=== PATIENT | female | born 1995 | race Caucasian/White ===

== ENCOUNTER 2018-07-12 07:36 | Emergency (ER) | payer OTHER ==
--- NOTE | 2018-07-12 09:13 | ER Document Report ---
HPI - HPI Time Seen by Provider: 07/12/18 09:07 Pain Level: 4 Context: Patient is a 23-year-old female who presents emergency department with a chief complaint of a swollen throat, dizziness, fever, and not being able to eat since Monday. She states that she has had chills on and off. She has been taking Tylenol and ibuprofen but she can, but has had little relief. She denies any runny nose or cough. - ROS Systems Reviewed and Negative: Yes All other systems reviewed and negative - CONSTITUTIONAL Constitutional: REPORTS: Fever, Chills - EENT EENT: REPORTS: Sore Throat. DENIES: Ear Pain, Nasal Drainage-Clear, Nasal Drainage-Purulent, Congestion, Eye problems - NEURO Neurology: DENIES: Headache, Weakness - CARDIOVASCULAR Cardiovascular: DENIES: Chest pain - RESPIRATORY Respiratory: DENIES: Trouble Breathing, Coughing - GASTROINTESTINAL Gastrointestinal: DENIES: Abdominal Pain, Nausea, Patient vomiting - REPRODUCTIVE LMP: 07/12/18 Reproductive: DENIES: : - MUSCULOSKELETAL Musculoskeletal: DENIES: Extremity pain - DERM Skin Color: Normal Skin Problems: None Past Medical History - Social History Smoking Status: Unknown if Ever Smoked Family History: Reviewed & Not Pertinent Vertical Provider Document - CONSTITUTIONAL Agree With Documented VS: Yes Exam Limitations: No Limitations General Appearance: No Apparent Distress - INFECTION CONTROL TRAVEL OUTSIDE OF THE [place] IN LAST 30 DAYS: No - HEENT HEENT: Atraumatic, Normocephalic, PERRLA, Pharyngeal Exudate, Pharyngeal Tenderness, Pharyngeal Erythema. negative: Conjuctival Injection, Tympanic Membrane Red, Tympanic Membrane Bulging - NECK Neck: Normal Inspection, Supple, Thyroid Normal, Lymphadenopathy-Left, Lymphadenopathy-Right - RESPIRATORY Respiratory: Breath Sounds Normal, No Respiratory Distress - CARDIOVASCULAR Cardiovascular: Regular Rate, Regular Rhythm Pulses: Normal: Radial - MUSCULOSKELETAL/EXTREMETIES Musculoskeletal/Extremeties: FROM, Non-Tender, Tender - NEURO Level of Consciousness: Awake, Alert, Appropriate Motor/Sensory: No Motor Deficit, No Sensory Deficit - DERM Integumentary: Warm, Dry Course - Re-evaluation Re-evalutation: 07/12/18 09:55 Patient has tonsillar exudate, lymphadenopathy on both sides, and pharyngeal erythema. She will receive Decadron and penicillin here in the emergency department, as I suspect patient does have strep pharyngitis. She does have a fever of 100.6 here in the emergency department. She was given Tylenol. Uvula is midline. I do not suspect the patient has a peritonsillar abscess, Niles's angina, or any life-threatening etiology at this time. Her airway is patent. She is to follow-up with her primary care provider in regards to this visit. Verbal discharge instructions were given to the patient. They verbalized understanding. They are stable for discharge. - Vital Signs Vital signs: Temp Pulse Resp BP Pulse Ox 100.6 F H 105 H 16 119/76 97 07/12/18 07:39 07/12/18 07:39 07/12/18 07:39 07/12/18 07:39 07/12/18 07:39 Discharge - Discharge Clinical Impression: Pharyngitis Qualifiers: Pharyngitis/tonsillitis etiology: unspecified etiology Qualified Code(s): J02.9 - Acute pharyngitis, unspecified Condition: Stable Disposition: HOME, SELF-CARE Instructions: Penicillin V K (OM), Sore Throat (OM) Additional Instructions: You were seen today in the emergency department for sore throat. You were treated here in the emergency department for strep throat. Please follow-up with your primary care provider within the next few days. If you have worsening symptoms, or have any symptoms that are worrisome to you, please return to the emergency department.
[2018-07-12] MEDS ORDERED: ACETAMINOPHEN 325 MG TABLET PO ONE (09:14)
[2018-07-12] MEDS ORDERED: DEXAMETHASONE SOD PHOS INJ 10 MG/1 ML VIAL IM ONE (09:14)
[2018-07-12] MEDS ORDERED: PENICILLIN G BENZATHINE 1.2 MILLION UNIT/2 ML DISP.SYRIN IM ONE (09:54)
[2018-07-12 10:06] VITALS: BP 114/71
== END 2018-07-12 10:08 | disposition home or self-care (01) ==
LOC: ER 07:36
DX: J02.9 Acute pharyngitis, unspecified (principal); R22.1 Localized swelling, mass and lump, neck; R42 Dizziness and giddiness; R50.9 Fever, unspecified
CPT/HCPCS: 99283; 96372; 87070; 87880; 87077; J0561; J1100

== ENCOUNTER → 2018-10-26 | Day surgery (SDC) | payer OTHER ==
--- NOTE | 2018-10-26 12:29 | RADIOLOGY REPORT (SQ) ---
EXAM DESCRIPTION: ARTHRO SHOULDER INJECTION COMPLETED DATE/TIME: 10/26/2018 9:32 am REASON FOR STUDY: PAIN IN LEFT SHOULDER M25.512 PAIN IN LEFT SHOULDER COMPARISON: None. FLUOROSCOPY TIME: 2 seconds 1 digital C-arm images saved to PACS. LIMITATIONS: None. PROCEDURE: Procedure, risks, benefits and alternatives explained to patient who then gave written co nsent. The posterior left glenohumeral joint at the shoulder was marked and a time out was called for correct procedure verification. Posterior entry site marked using fluoroscopic guidance. Shoulder prepped and draped using sterile technique. Local anesthesia achieved using 1% lidocaine injection. Hypodermic needle introduced into the joint space under direct fluoroscopic visualization. Non-ionic contrast instilled to confirm intra-articular position. Dilute gadolinium solution then injected. N eedle removed and entry site covered with sterile bandage. No immediate complications noted. TECHNIQUE: Digital images acquired during fluoroscopy and stored on PACS. Patient immediately take n to the MR suite for additional imaging. INJECTION LOCATION: Posterior left glenohumeral joint CONTRAST TYPE AND AMOUNT: 1 mL of Omnipaque 300 injected to confirm intra-articular needle placement of by injection of 10 mL of dilute Dotarem/Saline mixture. IMPRESSION: SUCCESSFUL NEEDLE PLACEMENT AND INJECTION FOR LEFT SHOULDER MR ARTHROGRAM USING POSTERIO R APPROACH. COMMENT: Quality ID [id number]: Final reports for procedures using fluoroscopy that document radiation exp osure indices, or exposure time and number of fluorographic images (if radiation exposure indices are not available) TECHNICAL DOCUMENTATION: JOB ID: [id number] [employer] All Rights Reserved Reading location - IP/workstation name: [email or web address]
--- NOTE | 2018-10-26 13:05 | RADIOLOGY REPORT (SQ) ---
EXAM DESCRIPTION: MRI LT UPPER JOINT WITH COMPLETED DATE/TIME: 10/26/2018 10:12 am REASON FOR STUDY: PAIN IN LEFT SHOULDER M25.512 PAIN IN LEFT SHOULDER COMPARISON: None. TECHNIQUE: Left shoulder images acquired and stored on PACS. Oblique coronal, oblique sagittal, and axial imaging to include fat sensitive sequences as T1, water sensitive sequences as FST2/STIR, and c ontrast sensitive sequences as FST1. LIMITATIONS: None. FINDINGS: JOINT DISTENTION: Adequate distention for interpretation. BONE MARROW AND CORTEX: Normal. No significant osteophytes. No edema or defects. AC JOINT: Type II acromion. No significant AC joint arthropathy. GLENOHUMERAL JOINT: No subluxation or dislocation. No focal chondral defects or reactive bone changes . ROTATOR CUFF: Intact without significant tendinopathy, partial or full-thickness tears. No peritendin itis. LABRUM AND BICEPS LABRAL COMPLEX: Normal signal in the rotator interval without tear of the superior glenohumeral ligament. However, there is a 2 cm synovial cyst filling with contrast along the subcor acoid recess on axial image 7, coronal image 5, and sagittal image 6. Superior labrum, intra-articular long head biceps intact. Distal biceps in normal anatomic location i n bicipital groove. No paralabral cysts. INFERIOR LABRAL COMPLEX: Bony glenoid and labrum intact. IGHL intact without thickening or tear. No p aralabral cysts. ADJACENT SOFT TISSUES: No masses or nodes. OTHER: No other significant finding. IMPRESSION: 2 cm synovial cyst filling with contrast along the subcoracoid recess. No gross superior labral tear or rotator interval tear. TECHNICAL DOCUMENTATION: JOB ID: [id number]- All Rights Reserved Reading location - IP/workstation name: [email or web address]
== END ==
LOC: RAD 08:56
PROVIDERS: ATTEND Emergency Medicine
DX: M25.512 Pain in left shoulder (principal)
CPT/HCPCS: 23350; 77002

== ENCOUNTER 2019-11-25 19:31 | Emergency (ER) | payer OTHER ==
--- NOTE | 2019-11-25 20:36 | ER Document Report ---
ED Medical Screen (RME) - General Chief Complaint: Inability to Void Stated Complaint: ABDOMINAL PAIN,UNABLE TO URINATE Time Seen by Provider: 11/25/19 20:34 Primary Care Provider: SHIRA MEJIA MD [Primary Care Provider] - Follow up as needed Information source: Patient Notes: Patient presents complaining of lower pelvic pain and low back pain for the past 5 days. Patient denies any vaginal bleeding or discharge. Patient reports some decreased urine output. Patient denies any nausea or vomiting but does report diarrhea. Patient does state that she recently had a tampon in vaginally and forgot it was there and later in the same day had intercourse and then realized the tampon was there and removed and later that night. I have greeted and performed a rapid initial assessment of this patient. A comprehensive ED assessment and evaluation of the patient, analysis of test results and completion of the medical decision making process will be conducted by additional ED providers. TRAVEL OUTSIDE OF THE [place] IN LAST 30 DAYS: No - Related Data Allergies/Adverse Reactions: No Known Allergies Allergy (Verified 11/25/19 20:22) Past Medical History Renal/ Medical History: Denies: Hx Peritoneal Dialysis - Immunizations Hx Diphtheria, Pertussis, Tetanus Vaccination: No Physical Exam - Vital signs Vitals: Temp Pulse Resp BP Pulse Ox 98.3 F 86 16 128/89 H 99 11/25/19 19:42 11/25/19 19:42 11/25/19 19:42 11/25/19 19:42 11/25/19 19:42 - Abdominal Tenderness: Tender - Lower pelvic tenderness Course - Vital Signs Vital signs: Temp Pulse Resp BP Pulse Ox 98.3 F 86 16 128/89 H 99 11/25/19 19:42 11/25/19 19:42 11/25/19 19:42 11/25/19 19:42 11/25/19 19:42 Doctor's Discharge - Discharge Referrals: SHIRA MEJIA MD [Primary Care Provider] - Follow up as needed
--- NOTE | 2019-11-25 22:12 | RADIOLOGY REPORT (SQ) ---
EXAM DESCRIPTION: US PELVIS COMPLETED DATE/TME: 11/25/2019 20:34 CLINICAL HISTORY: 24 years, Female, pelvic pain, low back pain COMPARISON: None. TECHNIQUE: Endovaginal images of the pelvis were obtained. Grayscale imaging and Doppler imaging were performed. LIMITATIONS: None. FINDINGS: Uterus measures approximately 9.7 x 9.1 x 6.8 cm. There is a 6.8 x 6.5 x 6 cm heterogeneous, solid myometrial mass within the posterior uterine body and fundus, most consistent with a leiomyoma. There is some effacement of the posterior endometrial stripe. Endometrial stripe thickness is 8 mm. The ovaries are nonvisualized on this exam. There is no adnexal mass or free pelvic fluid identified. IMPRESSION: 6.8 cm myometrial mass most consistent with an intramural fibroid. Endometrial stripe thickness is 8 mm. Neither ovary is seen. copyright 2010 [employer]- All Rights Reserved
[2019-11-25 22:23] LABS: ABSOLUTE BASOPHILS # (AUTO) 0.1 10^3/uL (0.0-0.2); ABSOLUTE EOSINOPHILS # (AUTO) 0.3 10^3/uL (0.0-0.6); ABSOLUTE LYMPHOCYTES (AUTO) 2.6 10^3/uL (0.5-4.7); ABSOLUTE MONOCYTES (AUTO) 0.5 10^3/uL (0.1-1.4); ABSOLUTE NEUT (AUTO) 6.5 10^3/uL (1.7-8.2); BASOPHILS % (AUTO) 0.9 % (0-2); LYMPHOCYTES % (AUTO) 25.9 % (13-45); MEAN CORPUSCULAR HEMOGLOBIN 30.9 pg (27.0-33.4); MEAN CORPUSCULAR HGB CONC 34.1 g/dL (32.0-36.0); MEAN CORPUSCULAR VOLUME 91 fl (80-97); MONOCYTES % (AUTO) 5.3 % (3-13); PLATELET COUNT 264 10^3/uL (150-450); RED BLOOD COUNT 4.53 10^6/uL (3.72-5.28); RED CELL DISTRIBUTION WIDTH 12.7 % (11.5-14.0); SEGMENTED NEUTROPHILS % (AUTO) 64.9 % (42-78); TOTAL CELLS COUNTED % (AUTO) 100 %
[2019-11-25 22:36] LABS: ALBUMIN 4.7 g/dL (3.5-5.0); ALKALINE PHOSPHATASE 57 U/L (38-126); ANION GAP 11 (5-19); ASPARTATE AMINO TRANSFERASE 26 U/L (14-36); BILIRUBIN,DIRECT 0.3 mg/dL (0.0-0.4); BILIRUBIN,TOTAL 0.4 mg/dL (0.2-1.3); BLOOD UREA NITROGEN 13 mg/dL (7-20); CALCIUM 9.5 mg/dL (8.4-10.2); CARBON DIOXIDE 26 mmol/L (22-30); CHLORIDE 102 mmol/L (98-107); GLUCOSE 95 mg/dL (75-110); POTASSIUM 3.7 mmol/L (3.6-5.0); TOTAL PROTEIN 8.2 g/dL (6.3-8.2)
[2019-11-25 23:38] VITALS: BP 119/75
[2019-11-25 23:48] LABS: CHLAM PCR NOT DETECTED (NOT DETECT)
== END 2019-11-26 00:10 | disposition left against medical advice (07) ==
LOC: ER 19:31
DX: R10.2 Pelvic and perineal pain (principal); M54.5 Low back pain; R39.89 Other symptoms and signs involving the genitourinary system; Z53.20 Procedure and treatment not carried out because of patient's decision for unspecified reasons
CPT/HCPCS: 36415; 76856; 80053; 84703; 85025; 87491; 87591; 93976; 99281

== ENCOUNTER 2019-11-26 15:42 | Emergency (ER) | payer OTHER ==
[2019-11-26 16:29] VITALS: BP 130/81
--- NOTE | 2019-11-26 17:13 | ER Document Report ---
ED GI/ - General Chief Complaint: Abdominal Pain Stated Complaint: LOWER ABDOMINAL PAIN Primary Care Provider: SHIRA MEJIA MD [Primary Care Provider] - Follow up as needed KYLE VIDES MD [ACTIVE PROVISIONAL STAFF] - Follow up as needed Notes: CHIEF COMPLAINT: Pelvic pain and vaginal bleeding HPI: 24-year-old female presenting to the emergency department for evaluation of pelvic pain and vaginal bleeding that began yesterday. Patient has had some abnormal menses in the past but states that this seemed to be much worse and the pelvic pain was persistent over the last 48 hours. Does not have an [facility]. States that she felt like the bleeding may have lessened a little bit overnight but when she went to the bathroom earlier today she had large clots. ROS: See HPI - all other systems were reviewed and are otherwise negative Constitutional: no fever or recent illness Cardiovascular: no chest pain Resp: no SOB, no cough GI: no vomiting, no diarrhea : no dysuria, no vaginal discharge, positive pelvic pain, positive vaginal bleeding Integumentary: no rash Allergy: no hives MEDICATIONS: I agree with the patient medications as charted by the RN. ALLERGIES: I agree with the allergies as charted by the RN. PAST MEDICAL HISTORY/PAST SURGICAL HISTORY: Reviewed and agree as charted by RN. SOCIAL HISTORY: Reviewed and agree as charted by RN. FAMILY HISTORY: No significant familial comorbid conditions directly related to patient complaint EXAM: Reviewed vital signs as charted by RN. CONSTITUTIONAL: Alert and oriented and responds appropriately to questions. Well-appearing; well-nourished HEAD: Normocephalic; atraumatic EYES: PERRL; Conjunctivae clear, sclerae non-icteric ENT: normal nose; no rhinorrhea; moist mucous membranes; pharynx without lesions noted NECK: Supple without meningismus; non-tender; no cervical lymphadenopathy, no masses CARD: RRR; no murmurs, no clicks, no rubs, no gallops; symmetric distal pulses RESP: Normal chest excursion without splinting or tachypnea; breath sounds clear and equal bilaterally; no wheezes, no rhonchi, no rales ABD/GI: Normal bowel sounds; non-distended; soft, non-tender, no rebound, no guarding; no palpable organomegaly or masses : 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 External genitalia normal. No skin lesions noted. Pelvic Exam: There is some dark blood in the vaginal vault with no clots. No purulent discharge. Cervix appears normal. No CMT. No lesions or masses. Uterus enlarged and moderately tender. Right/Left adnexa normal size and non tender. BACK: The back appears normal and is non-tender to palpation, there is no CVA tenderness EXT: Normal ROM in all joints; non-tender to palpation; no cyanosis, no effusions, no edema SKIN: Normal color for age and race; warm; dry; good turgor; no acute lesions noted NEURO: Moves all extremities equally; Motor and sensory function intact PSYCH: The patient's mood and manner are appropriate. Grooming and personal hygiene are appropriate. MDM: 24-year-old female presenting with pelvic pain and vaginal bleeding over the last 2 days. Noted to have a 6.8 cm fibroid likely causing her bleeding and discomfort. Her lab work has not significantly change since yesterday. She had presented to the emergency department had pelvic ultrasound and lab work done yesterday without actually seeing a provider before leaving. She returned today given the persistent pain. She is driving home, does not want narcotics here. She is moderately uncomfortable. Will place her on anti-inflammatories and pain medication refer to [facility] for follow-up. Patient does not appear to be hemorrhaging her lab work has not changed significantly since yesterday TRAVEL OUTSIDE OF THE [place] IN LAST 30 DAYS: No - Related Data Allergies/Adverse Reactions: No Known Allergies Allergy (Verified 11/25/19 20:22) Past Medical History - Social History Smoking Status: Never Smoker Family History: Reviewed & Not Pertinent Patient has homicidal ideation: No Renal/ Medical History: Denies: Hx Peritoneal Dialysis - Immunizations Hx Diphtheria, Pertussis, Tetanus Vaccination: No Physical Exam - Vital signs Vitals: Temp Pulse Resp BP Pulse Ox 98.5 F 86 17 130/81 H 98 11/26/19 16:11/26/19 16:11/26/19 16:11/26/19 16:11/26/19 16:25 Course - Vital Signs Vital signs: Temp Pulse Resp BP Pulse Ox 98.5 F 86 17 130/81 H 98 11/26/19 16:11/26/19 16:11/26/19 16:11/26/19 16:25 11/26/19 16:25 - Laboratory Result Diagrams: 11/26/19 17:00 Discharge - Discharge Clinical Impression: Abnormal vaginal bleeding Fibroid uterus Qualifiers: Uterine leiomyoma location: intramural Qualified Code(s): D25.1 - Intramural leiomyoma of uterus Condition: Stable Disposition: HOME, SELF-CARE Additional Instructions: Follow-up with [facility] for further evaluation and treatment call for appointment. It was noted on your ultrasound that you have a moderately sized fibroid which is likely causing her pain and abnormal bleeding. Pain medication as prescribed no driving if taking narcotics for pain. If you have worsened vaginal bleeding return for reevaluation your lab work today has not changed from your lab work yesterday Prescriptions: Naproxen 500 mg PO BID PRN #14 tablet PRN Reason: Oxycodone HCl/Acetaminophen [Percocet 5-325 mg Tablet] 1 tab PO Q4H PRN #15 tab PRN Reason: Referrals: SHIRA MEJIA MD [Primary Care Provider] - Follow up as needed KYLE VIDES MD [ACTIVE PROVISIONAL STAFF] - Follow up as needed
[2019-11-26 17:21] LABS: ABSOLUTE BASOPHILS # (AUTO) 0.1 10^3/uL (0.0-0.2); ABSOLUTE EOSINOPHILS # (AUTO) 0.3 10^3/uL (0.0-0.6); ABSOLUTE LYMPHOCYTES (AUTO) 1.8 10^3/uL (0.5-4.7); ABSOLUTE MONOCYTES (AUTO) 0.6 10^3/uL (0.1-1.4); ABSOLUTE NEUT (AUTO) 6.2 10^3/uL (1.7-8.2); EOSINOPHILS % (AUTO) 3.1 % (0-6); HEMATOCRIT 37.4 % (36.0-47.0); HEMOGLOBIN 13.2 g/dL (12.0-15.5); LYMPHOCYTES % (AUTO) 19.7 % (13-45); MEAN CORPUSCULAR HEMOGLOBIN 31.5 pg (27.0-33.4); MEAN CORPUSCULAR HGB CONC 35.4 g/dL (32.0-36.0); MEAN CORPUSCULAR VOLUME 89 fl (80-97); PLATELET COUNT 253 10^3/uL (150-450); RED CELL DISTRIBUTION WIDTH 12.8 % (11.5-14.0); SEGMENTED NEUTROPHILS % (AUTO) 69.2 % (42-78); TOTAL CELLS COUNTED % (AUTO) 100 %
[2019-11-26] MEDS ORDERED: KETOROLAC TROMETHAMINE 60 MG/2 ML SDV IM ONE (17:46)
[2019-11-26 18:29] LABS: RBCS (WET MOUNT) 4+ RBCS SEEN; T.VAGINALIS (WET MOUNT) NO TRICHOMONAS SEEN; WBCS (WET MOUNT) 1+ WBCS SEEN; YEAST (WET MOUNT) NO YEAST SEEN
[2019-11-26 19:57] LABS: CHLAM PCR NOT DETECTED (NOT DETECT)
== END 2019-11-26 18:50 | disposition home or self-care (01) ==
LOC: ER 15:42
DX: D25.1 Intramural leiomyoma of uterus (principal); R10.2 Pelvic and perineal pain; N93.9 Abnormal uterine and vaginal bleeding, unspecified
CPT/HCPCS: 99284; 96372; 36415; 87210; 85025; 87491; 87591; J1885